=== PATIENT | female | born 2000 ===

== ENCOUNTER → 2020-10-10 09:16 | Outpatient (CLI) | payer OTHER, MEDICAID, SELFPAY ==
[2020-10-10 10:05] LABS: COVID19 -Nasal RAPID Negative (Negative)
== END ==
PROVIDERS: Family Provider Internal Medicine; Visit Provider Nurse Practitioner
DX: Z20.828 Contact with and (suspected) exposure to other viral communicable diseases (principal)
CPT/HCPCS: 87635

== ENCOUNTER 2021-02-15 11:23 | Emergency (ER) | payer OTHER, MEDICAID, SELFPAY ==
[2021-02-15 11:43] VITALS: BP 120/71; PULSE 80; RESP 16; TEMP 36.9; O2SAT 98; BMI 18.8
--- NOTE | 2021-02-15 12:35 | DI.RAD.S_ITS ---
PROCEDURE: XR ABDOMEN 1V INDICATIONS: abd pain TECHNIQUE: One view of the abdomen acquired. COMPARISON: None. FINDINGS: Surgical changes and devices: None. Bowel: Bowel gas pattern is nonobstructive. There is a large amount of fecal material noted in the region of the distal sigmoid colon and rectum. Soft tissues: No suspicious abdominal calcifications. Visualized solid organ contours appear normal in size. Bones: No suspicious bony lesions. IMPRESSION: Nonobstructive bowel gas pattern. Large amount of fecal material noted in the distal sigmoid colon and rectum. Dictated by: Cesario Giordano M.D. on 02/15/2021 at 12:51 Approved by: Cesario Giordano M.D. on 02/15/2021 at 12:51
[2021-02-15 14:05] VITALS: BP 110/64; PULSE 69; RESP 19; O2SAT 98
[2021-02-15 14:30] VITALS: BP 118/64; PULSE 65; RESP 17; O2SAT 99
--- NOTE | 2021-02-15 14:36 | ED_ITS ---
HPI - General Adult General Chief complaint: Abdominal Pain Stated complaint: severe stomach pain, nausea Time Seen by Provider: 02/15/21 13:15 Source: patient Mode of arrival: Ambulatory Limitations: no limitations History of Present Illness HPI narrative: 21-year-old female here for evaluation of several weeks of bilateral lower abdominal discomfort. Has had some nausea but no vomiting. Has not had any urinary symptoms. No change in her menstrual cycles. No fevers. She does state that she feels like she is constipated. She has taken [id number] laxatives at home without any improvement. She is here because things seemed to got a little worse today. Related Data Home Medications Medication Instructions Recorded Confirmed IBUPROFEN (Motrin / Advil) 400 mg PO #0 05/30/10 11/18/20 Allergies Allergy/AdvReac Type Severity Reaction Status Date / Time No Known Allergies Allergy Unknown Verified 11/18/20 17:35 Review of Systems Constitutional Constitutional: Denies fever(s) and Denies headache(s) Eyes Eyes: Denies change in vision ENT Ears, Nose, Mouth, and Throat: Denies headache(s) Cardiovascular Cardiovascular: Denies chest pain and Denies dyspnea Respiratory Respiratory: Denies dyspnea Gastrointestinal Gastrointestinal: Reports abdominal pain, Reports constipation, Denies diarrhea, Reports nausea and Denies vomiting Genitourinary Genitourinary: Denies dysuria Genitourinary: Denies abnormal vaginal bleeding and Denies dysuria Musculoskeletal Musculoskeletal: Denies arthralgias and Denies myalgias Integumentary/Breasts Skin/Breast: Denies lesions and Denies rash Neurologic Neurologic: Denies behavioral changes and Denies headache(s) Psychiatric Psychiatric: Denies behavioral changes Hematologic/Lymphatic On Anticoagulants: No Allergic/Immunologic Allergic/Immunologic: Denies urticaria Patient History Medical History Exposure to 2019 novel coronavirus Nonsmoker Pityriasis rosea Social History Smoking Status: Never smoker Smoking Status: Never smoker Substance Use Type: does not use Exam Initial Vital Signs Initial Vital Signs: Vital Signs Temperature 98.4 F 02/15/21 11:43 Pulse Rate 80 02/15/21 11:43 Respiratory Rate 16 02/15/21 11:43 Blood Pressure 120/71 02/15/21 11:43 Pulse Oximetry 98 02/15/21 11:43 Const General: cooperative and comfortable Limitations: mental status not altered HENMT Head: normal to inspection and normocephalic Eyes General: appearance normal, both eyes and all related structures Resp Effort & Inspection: normal respiratory effort Auscultation: clear to auscultation bilaterally Cardio Rate: regular rate Rhythm: regular rhythm GI Inspection: non-distended Palpation: soft, No firm and tender (Bilateral lower abdomen without rebound or guarding) Back/Spine/Pelvis Back: No CVA tenderness Skin Lesions: no lesions Rashes: no rashes Neuro General: patient alert and patient awake Cognition: normal cognition Speech: speech normal Extrem General: normal to inspection and capillary refill normal Psych Appearance: grossly normal and well kempt Course Orders Ordered: ED Orders 02/15/21 12:35 XR abdomen 1V Stat Vital Signs Vital signs: Vital Signs - 8 hr 02/15/21 11:43 02/15/21 14:05 02/15/21 14:30 Temperature 98.4 F Pulse Rate 80 69 65 Respiratory Rate 16 19 17 Blood Pressure 120/71 110/64 118/64 Pulse Oximetry 98 98 99 02/15/21 14:47 Temperature Pulse Rate 69 Respiratory Rate 18 Blood Pressure 118/64 Pulse Oximetry 99 Medical Decision Making Lab Data Lab results reviewed: Yes I reviewed the patient's lab results. Labs: Point of Care Testing Test Results Negative Urine Dip Bedside Urine Glucose Negative Bedside Urine Bilirubin - Negative Bedside Urine Ketone - Negative Urine Specific [place] Pool 1.025 Bedside Urine Occult Blood - Negative Bedside Urine pH 6.0 Bedside Urine Protein - Negative Bedside Urine Urobilinogen - Negative Bedside Urine Nitrite - Negative Bedside Urine Leukocytes - Negative Esterase Point of care testing: Point of Care Testing Test Results Negative Urine Dip Bedside Urine Glucose Negative Bedside Urine Bilirubin - Negative Bedside Urine Ketone - Negative Urine Specific [place] Pool 1.025 Bedside Urine Occult Blood - Negative Bedside Urine pH 6.0 Bedside Urine Protein - Negative Bedside Urine Urobilinogen - Negative Bedside Urine Nitrite - Negative Bedside Urine Leukocytes - Negative Esterase Imaging Data Abdominal x-ray: Radiologist's Impression: [address] [id number] ReportSigned Patient: [facility] [id number]: 2000Acct:[id number]/Sex: 21 / FDate of Service: 02/15/21Loc: EDAccession Number: [id number] Procedure: XR abdomen 1V Ordering Provider: Yani Bravo MD PROCEDURE: XR ABDOMEN 1V INDICATIONS: abd pain TECHNIQUE: One view of the abdomen acquired. COMPARISON: None. FINDINGS: Surgical changes and devices: None. Bowel: Bowel gas pattern is nonobstructive. There is a large amount of fecal material noted in the region of the distal sigmoid colon and rectum. Soft tissues: No suspicious abdominal calcifications. Visualized solid organ contours appear normal in size. Bones: No suspicious bony lesions. IMPRESSION: Nonobstructive bowel gas pattern. Large amount of fecal material noted in the distal sigmoid colon and rectum. Dictated by: Cesario Giordano M.D. on 02/15/2021 at 12:51 Approved by: Cesario Giordano M.D. on 02/15/2021 at 12:51 [facility] Narrative Medical decision making narrative: Patient has a very benign abdominal exam. Her urinalysis negative. test is negative. X-ray does show stool in the sigmoid colon which does fit with her concerns about constipation. I have low suspicion for appendicitis. Low suspicion for ovarian torsion. I feel we should hold on radiologic studies for now. We did discuss the use of laxatives at home. Discussed return precautions and follow-up instructions. She expressed understanding and agreement. Discharge Plan Departure Patient Disposition: Home Clinical Impression: Abdominal pain, Constipation Instructions: DI for Abdominal Pain-Adult, DI for Constipation Activity Restrictions/Additional Instructions: I recommend that you increase your fluid intake like we discussed and also take the laxatives/stool softeners like we discussed. Contact your primary provider for follow-up. Return to the emergency department for any new or worsening symptoms Prescriptions: No Action IBUPROFEN (Motrin / Advil) 400 mg PO Qty: 0 RF: 0 Referrals: Erick Carpenter MD [Primary Care Provider] -
[2021-02-15 14:47] VITALS: BP 118/64; PULSE 69; RESP 18; O2SAT 99
== END 2021-02-15 14:49 | disposition home or self-care (01) ==
PROVIDERS: Emergency Provider Emergency Medicine; Family Provider Internal Medicine; PCP Internal Medicine
DX: R10.9 Unspecified abdominal pain (principal); K59.00 Constipation, unspecified; R11.0 Nausea
CPT/HCPCS: 36415; 74018; 81003; 81025; 99283; 99284